=== PATIENT | female | born 1940 ===

== ENCOUNTER 2017-09-05 10:27 | Emergency (ER) | payer MEDICARE ==
--- NOTE | 2017-09-05 12:09 | ED ---
Shortness of Breath - HPI Summary HPI Summary: 77 yr old female with the complaint of SOB. Onset of symptoms over several days including SOB, anasarca, edema, loss of appetite and nausea. She has no doctor, no meds. - History of Current Complaint Time Seen by Provider: 09/05/17 11:51 PMH/Surg Hx/FS Hx/Imm Hx Infectious Disease History: Denies: Traveled Outside the [place] in Last 30 Days - Family History Known Family History: Positive: None - Social History Occupation: Retired Lives: With Family Review of Systems Constitutional: Negative Positive: Palpitations Positive: Shortness Of Breath Positive: Edema Positive: Other - blisters on legs All Other Systems Reviewed And Are Negative: Yes Physical Exam Triage Information Reviewed: Yes Appearance: Positive: Well-Appearing, No Pain Distress Skin: Positive: Warm, Other - bilsters on both feet with erythema Head/Face: Positive: Normal Head/Face Inspection Eyes: Positive: EOMI ENT: Positive: Normal ENT inspection Neck: Positive: Nontender Respiratory/Lung Sounds: Positive: Clear to Auscultation, Breath Sounds Present Cardiovascular: Positive: IRR, Tachycardia Abdomen Description: Positive: Distended Musculoskeletal: Positive: Edema Left, Edema Right Neurological: Positive: Sensory/Motor Intact, Alert, Oriented to Person Place, Time, CN Intact II-III Psychiatric: Positive: Normal - Kieran Coma Scale Best Eye Response: 4 - Spontaneous Best Motor Response: 6 - Obeys Commands Best Verbal Response: 5 - Oriented Coma Scale Total: 15 Diagnostics - Laboratory Lab Statement: Any lab studies that have been ordered have been reviewed, and results considered in the medical decision making process. - EKG 09/05/17 Cardiac Rate: Tachycardia EKG Rhythm: Atrial Flutter - 2:1 EKG Interpretation: RBBB Course/Dx - Course Course Of Treatment: 77 yr old with SOB, tachycardia and anasarca. ANDREA Mahoney NP at [facility] and the patient is going to [facility] for further eval of symptoms. She seems to have Aflutter 2:1 with RBBB 150s vent rate. EMS here and they are transporting her to [facility]. - Diagnoses Provider Diagnoses: Shortness of breath, Anasarca, Atrial flutter Discharge - Sign-Out/Discharge Documenting (check all that apply): Discharge - Discharge Plan Condition: Good Disposition: TRANS HIGHER LVL OF CARE FAC Referrals: Non Staff,Doctor [Primary Care Provider] - - Billing Disposition and Condition Condition: GOOD Disposition: EMTALA
[2017-09-05 12:24] VITALS: BP 119/72
== END 2017-09-05 12:20 | disposition short-term general hospital (02) ==
LOC: UCCORT 10:27
DX: R06.02 Shortness of breath (principal); R60.1 Generalized edema; I48.92 Unspecified atrial flutter
CPT/HCPCS: 93005; 99203; G0463